=== PATIENT | male | born 1935 | race Caucasian/White ===

== ENCOUNTER 2016-11-28 13:38 | Inpatient (IN) | payer BC ==
--- NOTE | ~2016-11-28 | DS ---
Discharge Summary [facility] [address] [place]. [address] NAME: CLARITA WASHINGTON : 31 STATUS : DIS IN PAT#: [id number] AGE: 81 ADM/REG DATE : 11/28/16 MR#: [id number] REPORT SERV DATE: 12/02/16 DICTATED BY: DATE: REPORT STATUS : Draft TRANSCRIBED BY: MODL DATE: 12/02/16 ADMISSION DATE: 11/28/2016 DISCHARGE DATE: 12/02/2016 DISCHARGE DIAGNOSES: 1. Parkinson disease. 2. Progressive gait disturbance. 3. Hypertension. 4. Urinary tract infection. 5. Subacute transient ischemic attack. PROCEDURES AND IMAGIN. 11/28/2016, CT of the brain without contrast showed stable noncontrast CT appearance of the brain within the lesion on chronic ischemic finding with no acute finding demonstrated. 2. 11/28/2016, portable chest x-ray showed low lung volumes with mild bibasilar atelectasis. Otherwise, no acute cardiopulmonary abnormality appreciated. 3. 11/29/2016, carotid duplex showed category 1 disease involving cervical portions of the right and left internal carotid arteries with vertebral arteries patent with antegrade flow. HOSPITAL COURSE: Please see admission H and P by Dr. Abdullahi Jung dated 11/28/2016 for complete details regarding the patient's admission. In brief, the patient was admitted by Dr. Jung for initial workup and management of his subacute TIAs with Parkinson disease and progressive gait dysfunction. The patient has had difficulty with chronic compliance of his Parkinson's medications and has had repeated falls. During the patient's stay, he has had extended testing that has showed nothing acute that is affecting his gait and PT and OT have been treating him and recommend rehab at this time. The patient has been out of bed only with assistance by PT/OT and has been unable to ambulate with his rolling walker. PHYSICAL EXAMINATION: VITAL SIGNS: Blood pressure is 147/81, temp is 98.1, O2 saturation is 93% on room, respirations are 18, heart rate is 55. NEUROLOGIC: The patient is alert and oriented x3, pleasant and cooperative. Cranial nerves II through XII are grossly intact. HEENT: Head is atraumatic, normocephalic. Pupils are equal, round, reactive to light and accommodation. Sclerae are clear and nonicteric. NECK: Supple with no obvious lymphadenopathy or thyromegaly. Neck veins are flat. CARDIAC: The patient is in a regular rhythm with no obvious murmurs, rubs, or gallops. LUNGS: Clear anterior and posteriorly with normal respiratory effort just decreased in the bases. GI: Abdomen is soft and nontender with active bowel sounds in all four quadrants. Normal bowel habitus. No palpable organomegaly. EXTREMITIES: No significant edema, clubbing, or cyanosis. Dorsalis pedis and posterior tibial pulses are palpable bilaterally. MUSCULOSKELETAL: The patient moves all extremities x4. Discharge Summary [facility] [id number] [place]. [address] NAME: CLARITA WASHINGTON : 31 STATUS : DIS IN PAT#: [id number] AGE: 81 ADM/REG DATE : 11/28/16 MR#: [id number] REPORT SERV DATE: 12/02/16 DICTATED BY: DATE: REPORT STATUS : Draft TRANSCRIBED BY: MODL DATE: 12/02/16 SKIN: Skin is warm and dry with normal color and turgor. DISCHARGE DIET: The patient will be discharged on a regular diet. DISCHARGE MEDICATIONS: Aspirin 325 mg daily, Lipitor 40 mg daily, carbidopa levodopa 25/100 mg two tablets three times daily with meals and carbidopa levodopa 50/200 mg one tablet at bedtime, Neurontin 100 mg at bedtime, omeprazole 20 mg daily, Mirapex 0.25 mg three times daily, Tylenol 650 mg twice daily as needed for pain, Tylenol p.o. or p.r. 650 mg hours as needed for temp greater than 101 or mild pain, tears 1 drop in both eyes p.r.n. daily, Zyrtec 10 mg p.r.n. allergies, trazodone 50 mg p.r.n. at bedtime for sleep. ALLERGIES: THE PATIENT HAS NO KNOWN DRUG ALLERGIES. DISCHARGE INSTRUCTIONS: The patient is to follow up with his PCP in 7 to 10 days. Should the patient develop anymore neurological issues, he should follow up with his PCP or present to the ER. This discharge took me approximately 25 minutes coordinating discharge care of this patient including [id number] encounter, and summarization of the discharge. HEENA/KAILYN Jennifer Jamison NP / [id number] CC: Cruzito Brown MARGARET
--- NOTE | ~2016-11-28 | HP ---
History And Physical [facility] [id number] [place]. [address] NAME: CLARITA WASHINGTON : 31 STATUS : ADM Cassie PAT#: [id number] AGE: 81 ADM/REG DATE : 11/28/16 MR#: [id number] REPORT SERV DATE: 11/29/16 DICTATED BY: ANUJA XIE DATE: 11/29/16 REPORT STATUS : Draft TRANSCRIBED BY: MODL DATE: 11/29/16 DATE OF ADMISSION: 11/28/2016 REASON FOR ADMISSION: Severe parkinsonism and subacute TIA. HISTORY OF PRESENT ILLNESS: Mr. Washington is an 81-year-old male with Parkinson disease, hypertension, who presents to the emergency department today after telling his primary care provider that three days prior he had an episode of slurred speech lasting about five minutes after which he took a nap less than one hour and had no further symptoms after that. The patient says he has felt okay since then without speech problems, swallow problems, visual problems. He had chronic left-sided weakness for one year. This is unchanged from baseline and no change in his smile, however, his primary care provider was concerned and felt that emergency attention was indicated. The patient has chronic difficulty walking, chronic compliance problems with his Parkinson's medications. He has also had some falls with left shoulder pain one month ago. He has minimal exercise. No other pains. No chest pain or palpitations. He does have some chronic cough and sinus issues and no shortness of breath. No fevers or chills. Some mild foot swelling is noted and some dysuria over the last week. He denies low back pain or neck pain. No bleeding. No rashes. Remainder of the review of systems are negative. PAST MEDICAL HISTORY: As mentioned above. He has a history of a Billroth II, cholecystectomy, and a history of a perioperative cardiac arrest. MEDICATIONS: Include Sinemet two t.i.d., with one at bedtime. He is notably missed dose today. Trazodone 50 at bedtime, Prilosec 20 daily, Mirapex 0.25 t.i.d., Zyrtec, Neurontin, Ditropan, Tylenol. ALLERGIES: NO ALLERGIES. FAMILY HISTORY: Negative for parkinsonism. SOCIAL HISTORY: The patient is a remote smoker. [facility] [place]. PHYSICAL EXAMINATION: VITAL SIGNS: On presentation, blood pressure 147/67, pulse 79, respiration 18, afebrile, and saturating 92%. GENERAL: Comfortable, but very bradykinetic white male without tremor, but with masked facies and significant cogwheel rigidity. HEENT: Pupils equal and reactive to light. Extraocular movements are intact. No cranial nerve deficits. Moist mucous membranes with normal oropharynx. NECK: Revealed no jugular venous distention, carotid bruits, lymphadenopathy, or goiter. CARDIAC: Regular rate and rhythm. No murmurs, gallops, or rubs. LUNGS: Clear to auscultation bilaterally. Good excursion. ABDOMEN: Soft, nondistended, and nontender. Bowel sounds normoactive. EXTREMITIES: No cyanosis, clubbing, or edema. Good pulses and capillary refill. History And Physical [address] [address] NAME: CLARITA WASHINGTON : 31 STATUS : ADM Cassie PAT#: [id number] AGE: 81 ADM/REG DATE : 11/28/16 MR#: [id number] REPORT SERV DATE: 11/29/16 DICTATED BY: ANUJA XIE DATE: 11/29/16 REPORT STATUS : Draft TRANSCRIBED BY: KAILYN DATE: 11/29/16 NEUROLOGIC: He had 5-/5 strength in all four extremities. No sensory function x4. Normal [id number] test. No visual field deficits. It should be noted that his left side, however, was slightly weaker than his right and some delay in the smile that his said was unchanged. SKIN: Warm and dry. PSYCHIATRIC: He was appropriate. He was unable to stand on my exam. LABORATORY EVALUATION: Sodium 141, potassium 3.6, chloride 107, bicarb 27, BUN 15, creatinine 0.9, glucose 198. LFTs were negative. Troponin I negative. White count 6.7, hemoglobin and hematocrit 14 and 42, platelets 108. Urinalysis; 118 white cells. Chest x- ray reviewed by me was no apparent disease. EKG reviewed by me, normal sinus rhythm. No ST or T-wave changes. 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 ASSESSMENT/PLAN: 1. Subacute transient ischemic attack greater than 48 hours ago with no acute indication for hospitalization, however, the patient's Parkinson disease is such that he is unable to go home safely at this time. We will go ahead and evaluate the transient ischemic attack in telemetry overnight, checking lipid profile. I will give him aspirin and statin. We will check an echocardiogram and a carotid if we are able to get these on Thursday morning and anticipate cardiology followup for implantable monitor. If signs or symptoms that suggest paroxysmal atrial fibrillation are identified. It should be noted, however, that the patient has a urinary tract infection, this may exacerbate the previous stroke which he had a history of. Medication side effects such as Ditropan may also be considered. We will discontinue the Ditropan, treat the urinary tract infection with antibiotics pending cultures, and check a postvoid residual as elderly men are at particular risk of genitourinary side effects with Ditropan. 2. Parkinson disease. This appears to be actually exacerbated by noncompliance. He has significant bradykinesia. He may actually require rehabilitation, although it sounds like his baseline is satisfactory at the senior facility. Will begin him again on his regular medications and see how he does. 3. Hypertension. Blood pressure is currently satisfactory. ALEJANDRINA/KAILYN Anuja Xie M.D. / [id number] CC: Anuja Xie M.D.
[2016-11-28 13:15] LABS: BASOPHILS 0.3 %; BASOPHILS ABSOLUTE 0.02 10/3/uL (0.0-0.16); EOSINOPHILS 2.4 %; EOSINOPHILS ABSOLUTE 0.16 10/3/uL (0.0-0.53); ER CBC TAT 0 Hrs 07 Mins; HEMATOCRIT 41.9 % (40.0-51.0); HEMOGLOBIN 14.1 g/dL (13.6-17.8); IMMATURE GRANULOCYTES 0.3 %; IMMATURE GRANULOCYTES ABSOLUTE 0.02 10/3/uL (0.0-0.11); LYMPHOCYTES 13.8 %; LYMPHOCYTES ABSOLUTE 0.92 10/3/uL (0.67-4.30); MEAN CORPUS HGB CONC 33.7 g/dL (32.0-36.0); MEAN CORPUSCULAR HEMOGLOB 30.1 pg (26.0-34.0); MEAN CORPUSCULAR VOLUME 89.3 fL (80-100); MEAN PLATELET VOLUME 10.1 fL (9.2-13.0); MONOCYTES 12.3 %; MONOCYTES ABSOLUTE 0.82 10/3/uL (0.21-1.20); NEUTROPHILS 70.9 %; NEUTROPHILS ABSOLUTE 4.74 10/3/uL (2.02-8.40); PLATELET COUNT 128 10/3/uL (150-400); RBC DISTRIBUTION WIDTH 13.5 % (12.0-16.0); RED CELL COUNT 4.69 10/6/uL (4.7-6.1); WHITE BLOOD CELLS 6.7 10/3/uL (4.5-10.5)
[2016-11-28 13:16] LABS: MANUAL DIFF NO %
[2016-11-28 13:21] LABS: INTERNATIONAL NORMAL RATI 1.1 UNITS (-)
[2016-11-28 13:33] LABS: ALBUMIN 3.3 G/DL (3.5-5.0); BUN (BLOOD UREA NITROGEN) 15 MG/DL (6-23); CALCIUM, SERUM 8.5 MG/DL (8.5-10.4); CHLORIDE, SERUM 107 MMOL/L (96-112); CO2 (CARBON DIOXIDE) 27 MMOL/L (24-34); CREATININE 0.87 MG/DL (0.70-1.30); GFR AFRICAN AMERICAN 93 ML/MIN (>=60); GFR NON AFRICAN AMERICAN 80 ML/MIN (>=60); POTASSIUM, SERUM 3.6 MMOL/L (3.5-5.3); SGOT(AST) 24 U/L (5-40); SGPT(ALT) 10 U/L (5-65); SODIUM, SERUM 141 MMOL/L (135-148); TOTAL BILIRUBIN 0.5 MG/DL (0-1.2); TOTAL PROTEIN 6.7 G/DL (6.0-8.5); TROPONIN I <0.02 NG/ML (<0.05)
[2016-11-28 13:34] LABS: ALKALINE PHOSPHATASE 134 U/L (45-117); GLOBULIN 3.4 G/DL (2.5-4.1); GLUCOSE, SERUM 198 MG/DL (60-99)
[~2016-11-28 13:38] MED LIST: DITRO5 PO; FLOMAX4 PO; HYGROTON 25 MG25 MG PO; LORTAB 5 PO; MAX25 PO; METHOC500B PO; MIRAPEX250 PO; NEUR100 PO; NORCO1 TA2 PO; PRILO PO; SIN-CR PO; SIN25 PO; T PO; TEARS PLUS OPH; TRAZ50 PO; VITAMIN B-121000 MC1 SL; ZYRTEC ALLGY10 MG PO
[2016-11-28 13:46] LABS: ASCORBIC ACID (UR NOT ORDER) NEG (NEG); BILIRUBIN, URINE NEGATIVE (NEG); ER URINALYSIS TAT 0 Hrs 13 Mins; KETONE, URINE TRACE MG/DL (NEG); LEUKOCYTE ESTERASE(NOT OR LARGE (NEG); NITRITE (URINE) NEG (NEG); WBC (NOT ORDERED) (RFLEX) 118 (0-5)
[2016-11-29 05:59] LABS: BUN (BLOOD UREA NITROGEN) 15 MG/DL (6-23); CALCIUM, SERUM 8.8 MG/DL (8.5-10.4); CHLORIDE, SERUM 109 MMOL/L (96-112); CHOL/HDL RATIO(NOT ORDER) 3.2 (0-5); CHOLESTEROL 175 MG/DL (< 200); CO2 (CARBON DIOXIDE) 24 MMOL/L (24-34); CREATININE 0.72 MG/DL (0.70-1.30); GFR AFRICAN AMERICAN 100 ML/MIN (>=60); GFR NON AFRICAN AMERICAN 86 ML/MIN (>=60); HDL CHOLESTEROL 55 MG/DL (> 39); LDL CHOLESTEROL 104 MG/DL (< 130); NON-HDL CHOLESTEROL 120 MG/DL (< 160); POTASSIUM, SERUM 3.9 MMOL/L (3.5-5.3); SODIUM, SERUM 142 MMOL/L (135-148); TRIGLYCERIDE 80 MG/DL (< 150)
[2016-11-29 06:21] LABS: GLUCOSE, SERUM 109 MG/DL (60-99)
== END 2016-12-02 11:08 | DRG 57 ==
LOC: ER 13:38 → CDU1 15:07
PROVIDERS: Internal Medicine; Nurse Practitioner Family
DX: G20 Parkinson's disease (principal); N39.0 Urinary tract infection, site not specified; G45.9 Transient cerebral ischemic attack, unspecified; I10 Essential (primary) hypertension; R33.9 Retention of urine, unspecified; R26.2 Difficulty in walking, not elsewhere classified; Z91.19 Patient's noncompliance with other medical treatment and regimen; Z91.81 History of falling; Z90.49 Acquired absence of other specified parts of digestive tract; Z87.891 Personal history of nicotine dependence; Z91.14 Patient's other noncompliance with medication regimen
CPT/HCPCS: 70450; 71010; 80048; 80053; 80061; 81001; 82962; 83605; 83735; 83880; 84484; 85025; 85610; 85730; 87040; 87077; 87086; 87186; 93005; 93880; 96374; 97162-GP; 97166-GO; 99285; A9270-GY; C8929; G0378; G8978-CL-GP; G8979-CK-GP; Q9957